=== PATIENT | female | born 1935 | race Caucasian/White ===

== ENCOUNTER 2017-02-01 15:01 | Inpatient (IN) | payer MEDICARE, OTHER ==
[~2017-02-01] VITALS: Ht 154.9 cm; Wt 34.5 kg
--- NOTE | 2017-02-01 18:10 | NUR ---
81 YR OLD FEMALE PATIENT ADMITTED TO CCU UNDER DR. BLOCK FROM ER VIA STRETCHER WITH DX OF ANEMIA, CHF. UPON ADMIT TO CCU PT IS ALERT AND ORIENTED X3. FAMILY MEMBERS WITH PATIENT. R LEG IS WITH EDEMA +3 ABLE TO HEAR PP WITH DOPLER. C/O PAIN IN LEFT KNEE. LEFT FOOT IS RED AROUND A BLACK AREA ON TOP OF FOOT. NOT ABLE TO HEAR PULSE IN THIS FOOT. PATIENT IS ASKINGG FOR FOOD AND COFFEE. ADMISSION PROCESS STARTED. HR 120. IN AFIB. HAS NO KNOWN HX OF THIS.
--- NOTE | 2017-02-01 19:00 | NUR ---
SITTING UP IN BED TO EAT. SCD'S APPLIED, MG HUNG, LASIX 20 MG IV GIVEN. TRINIDAD CATH PLACE AT 1830 WITH RETURN OF RESHMA URINE.
--- NOTE | 2017-02-01 19:11 | NUR ---
REPORT TO NEXT SHIFT WHO WILL FINISH ADMISSION ASSESSMENT.
--- NOTE | 2017-02-01 19:37 | EKG ---
[facility] [address] [place] [address] Signed Sinus tachycardia with frequent premature supraventricular complexes Septal infarct , age undetermined Abnormal ECG No previous ECGs available Confirmed by XAVIER BLOCK MD ([id number]) on 02/01/2017 7:37:18 PM Electronically Signed By: XAVIER BLOCK MD 02/01/171936 PATIENT NAME: URIEL CHAVIS Electrocardiogram DATE OF : 31 PHYSICIAN: XAVIER BLOCK MD REPORT #: [id number] REPORT IS CONFIDENTIAL AND NOT TO BE RELEASED WITHOUT AUTHORIZATION
--- NOTE | 2017-02-01 19:40 | NUR ---
REPORT REC'D FROM RODNEY ROSA. PT RESTING IN BED UPON INITIAL ASSESSMENT. PATIENT'S FAMILY MEMBERS IN ROOM AND ATTENTIVE. PT HAS TRINIDAD CATHETER THAT IS DRAINING VERY DILUTE URINE. PT REC'D LASIX EARLIER FOR DAY SHIFT. PT'S HEART RHYTHM NOTED TO BE IN A SINUS RHYTHM WITH MANY PACs NOTED. PT TO HAVE 2 UNITS OF PRBCs TONIGHT. PT WILL NEED ANOTHER IV SITE WELL. PT ATE MOST OF HER DINNER, BUT STILL C/O HER ABDOMEN FEELING "FULL." CONTINUE TO MONITOR.
--- NOTE | 2017-02-01 21:17 | NUR ---
PATIENT STARTED ON HER FIRST UNIT OF PRBCs AT 2039. PT'S NIECE LAURENCE IN ROOM AND STAYING WITH PATIENT TONIGHT. NEW IV STARTED IN LEFT FOREARM. TRINIDAD DRAINED FOR 1000 ML DILUTE URINE. CONTINUE TO MONITOR. PT DENIES THE NEED FOR NICOTINE PATCH, BUT HAS MENTIONED SEVERAL TIMES, "BOY I'D LIKE A DRAG OFF MY CIGARETTE RIGHT NOW."
--- NOTE | 2017-02-01 23:27 | NUR ---
PATIENT HAS BEEN SLEEPING. PT'S HAYLEE REMAINS AT BEDSIDE, ASLEEP ON COUCH. 1ST UNIT OF BLOOD JUST FINISHING AT THIS TIME. PT TO BE STARTED ON NEXT UNIT SOON. HEART RATE REMAINS IN A SINUS RHYTHM 80-90s, BUT SOMETIMES MULTIFOCAL ATRIAL TACHYCARDIA IS EVIDENT, WITH RATES OF 100-130s NONSUSTAINED. TRINIDAD DRAINING CLEAR YELLOW URINE IN GOOD AMOUNTS.
--- NOTE | 2017-02-02 05:53 | NUR ---
PATIENT CONTINUES TO SLEEP. PT TOLERATED THE 2 UNITS OF PRBCs WITHOUT ANY ISSUES. TRINIDAD CONTINUES TO DRAIN CLEAR YELLOW URINE. HEART RHYTHM REMAINS IN THE MAT, RATES OF 80-100s. LAST BP 176/88. PT'S HAYLEE REMAINS AT BEDSIDE SLEEPING ON COUCH.
--- NOTE | 2017-02-02 07:05 | NUR ---
U/S ON THEIR WAY TO PERFORM ABDOMINAL U/S ON PT'S LEFT LEG AND ALSO ON HER ABDOMEN TO EVALUATE FOR AN ABDOMINAL ANEURYSM.
--- NOTE | 2017-02-02 08:00 | NUR ---
SITTING UP IN BED. ASSESSMENT DONE. DENIES PAIN. FAMILY MEMBER IN ROOM. BOTH ARE UNDERSTANDING OF PLAN OF CARE FOR DAY.
--- NOTE | 2017-02-02 09:30 | NUR ---
TOOK FEW BITES OF BREAKFAST. DENIES NAUSEA. ECHO BEING DONE AT BEDSIDE.
--- NOTE | 2017-02-02 09:39 | NUR ---
CARDIZEM 5 MG IV GIVEN FOLLOWED BY CARDIZEM GTT AT 5 MG HR. HR 140. ECHO BEING DONE AT BEDSIDE. PATIENT DENIES PROBLEMS. DENIES DIZZINESS OR SHORTNESS OF BREATH.
--- NOTE | 2017-02-02 09:50 | NUR ---
ECHO COMPLETE. HR-115. NO CHANGES IN CARDIZEM GTT RATE, REMAINS AT 5 MG/HR.
--- NOTE | 2017-02-02 10:49 | NUR ---
PATIENT RESTFUL. NO CHANGES.
--- NOTE | 2017-02-02 11:00 | NUR ---
DR. BLOCK HERE TO SEE PATIENT.
--- NOTE | 2017-02-02 11:02 | NUR ---
HR-120-136. BP-131/76. DR. BLOCK HERE TO SEE PATIENT. ORDERS RECIEVED TO REPEAT CARIZEM 5 MG IV. THIS DONE.
--- NOTE | 2017-02-02 13:30 | NUR ---
ASLEEP. NO DISTRESS NOTED. CARDIZEM GTT REMAINS AT 7.5 MG/HR. WILL GIVE CARDIZEM PO ORDERED.
--- NOTE | 2017-02-02 14:27 | NUR ---
HAS BEEN RESTING. CARDIZEM 60 MG PO GIVEN. HR-<90.
--- NOTE | 2017-02-02 16:03 | NUR ---
CHECKED IN WITH PT AND SHE IS JUST SITTING IN BED PEACEFUL, I ORDERED HER DINNER AND SHE DIDNT WANT ANYTHING ELSE FOR NOW.
--- NOTE | 2017-02-02 16:30 | NUR ---
CARDIZEM GTT OFF. PATIENT IS W/O C/O.
--- NOTE | 2017-02-02 18:42 | NUR ---
RESTFUL. DENIES PROBLEMS.
--- NOTE | 2017-02-02 19:56 | NUR ---
PATIENT RESTING UPON INITIAL ASSESSMENT WITH HER NEICES AT BEDSIDE. PT IN GOOD SPIRITS AND STATES SHE IS FEELING BETTER TONIGHT OVERALL. PT STILL HAS TRINIDAD CATHETER DRAINING YELLOW URINE. PT HAS BEEN OF DILT GTT SINCE 1630. PT DENIES PAIN AT THIS TIME. SCDs ON. ASSESSMENT COMPLETE. CONTINUE TO MONITOR.
--- NOTE | 2017-02-02 21:48 | NUR ---
PATIENT SLEEPING AND APPEARS IN NAD. HEART RATE IN THE 70-80s, SINUS RHYTHM WITH LESS ECTOPY NOTED TONIGHT. SCDs ON. PT'S NEICE SARITA AT BEDSIDE. CONTINUE TO MONITOR.
--- NOTE | 2017-02-03 01:06 | NUR ---
PATIENT GIVEN 650 MG TYLENOL FOR 5/10 KNEE PAIN IN HER LEFT KNEE. PT STATES THIS HAS BEEN BUGGING HER MOST OF THE NIGHT AND SHE ALSO NOTES THAT HER KNEE IS COOLER THAN HER RIGHT LEG. PT ALSO NOTES THE PAIN EXTENDS DOWN HER STEVENS, WHICH PREVIOUSLY TONIGHT AND YESTERDAY, PT WAS UNABLE TO HAVE ANY SENSATION BELOW HER KNEE ONTHE LEFT. OTHER THAN THIS DISCOMFORT, PT DENIES PAIN OR SHORTNESS OF BREATH. PT REMAINS IN A SINUS RHYTHM WITH HR CURRENTLY 80-90s. TRINIDAD DRAINING YELLOW URINE. CONTINUE TO MONITOR.
--- NOTE | 2017-02-03 05:25 | NUR ---
PATIENT PLACED ON 2 L NC AT THIS TIME DUE TO SP02 DROPPING DOWN TO 86%. PT ASK3D TO TAKE SOME DEEP BREATHS WHICH HELPS FOR A SHORT WHILE, BUT SP02 CONTINUES TO DROP DOWN. PT NOW SIPPING ON A CUP OF COFFEE WITH HER NEICE AT BEDSIDE.
--- NOTE | 2017-02-03 06:23 | NUR ---
DR. BLOCK UPDATED ON PT'S OVERALL STATUS AND HER INCREASED PAIN IN HER LEG. ORDER REC'D TO D/C VIVI.
--- NOTE | 2017-02-03 06:31 | NUR ---
PATIENT STILL VERY PAINFUL IN HER LEFT LEG, AND ALMOST IN TEARS. DR. BLOCK UPDATED AGAIN AND ORDER REC'D FOR MORPHINE 2 MG IV Q2 HRS FOR PAIN. CONTINUE TO MONITOR.
--- NOTE | 2017-02-03 08:42 | NUR ---
PT AWAKE THIS A.M. AND ASSESSMENT AND VITAL SIGNS COMPLETED. PT C/O OF LEFT FOOT PAIN "02/10" - MEDICATED WITH MORPHINE 1MG IV. PT NOW RESTING WITH HOB ELEVATED. HR 85, SATS 93 ON 1L PER NC.
--- NOTE | 2017-02-03 10:05 | NUR ---
PT C/O OF LEFT FOOT PAIN "02/10". MEDICATED WITH 1MG MORPHINE IV. PT VISITING WITH FAMILY MEMBER IN ROOM.
--- NOTE | 2017-02-03 10:47 | NUR ---
DR. BLOCK IN TO ASSESS PT AND TALK WITH PT AND FAMILY MEMBERS.
--- NOTE | 2017-02-03 11:44 | NUR ---
ORDERS RECEIVED FROM DR. BLOCK. LASIX 20MG GIVEN IV & LIDOCAINE PATCH APPLIED TO LEFT FOOT. ASSESSMENT COMPLETED. PT RESTING AFTER BEING MEDICATED WITH MORPHINE 1MG IV.
--- NOTE | 2017-02-03 13:12 | NUR ---
PT AWAKE AND HUNGRY. STATES PAIN IS GONE NOW. PT RESTING IN BED WITH HOB ELEVATED, SATS 93 ON RA. FAMILY MEMBER IN ROOM.
--- NOTE | 2017-02-03 14:11 | NUR ---
VIVI LEVY DC'D, PT JENS WELL. I/O'S COMPLETED. PT DENIES PAIN AT THIS TIME. PT RESTING IN BED WITH HOB ELEVATED.
--- NOTE | 2017-02-03 15:38 | NUR ---
PT C/O OF LEFT KNEE/FOOT PAIN "02/10". MEDICATED WITH MORPHINE 1MG IV AND NORCO 1 TABLET. FAMILY IN ROOM.
--- NOTE | 2017-02-03 16:32 | NUR ---
PATIENT TAKES NO MEDICATIONS
--- NOTE | 2017-02-03 16:50 | NUR ---
REPORT GIVEN TO KEAGAN STEVENS. PT TRANSFERRED TO ROOM 120 VIA KARRIE CHAIR WITH RN. FAMILY WITH PT. PT DENIES C/O OF LEFT KNEE/FOOT PAIN AT THIS TIME.
--- NOTE | 2017-02-03 16:58 | NUR ---
PATIENT FROM ROOM 129 TO ROOM 120 VIA CHAIR. BRANNON STEVENS GAVE REPORT TO KEAGAN STEVENS. PATIENT DENIES PAIN AT THIS TIME. PLAN FOR PATIENT TO HAVE P.O. PAIN MEDICATIONS EVERY 4 HOURS. LEFT FOOT IS RED, TOP IS COVERED IN LIDODERM PATCH. PATIENT AMBULATED, UNSTEADILY TO BATHROOM 1-2 ASSIST TO HAVE UNMEASURED VOID. FAMILY IS IN ROOM. PATIENT IS UP TO CHAIR UNTIL DINNER.
--- NOTE | 2017-02-03 17:09 | NUR ---
PATIENT SITTING UP IN CHAIR WITH FAMILY IN ROOM. ORDERING DINNER. CALL BUTTON IN REACH. FRESH WATER GIVEN. NO OTHER NEEDS AT THIS TIME.
--- NOTE | 2017-02-03 17:25 | NUR ---
PT CALLED FOR PAIN MEDICATION. WHEN THIS RN BROUGHT PRN ANALGESIC TO PT PT REPORTED THAT HER LEFT FOOT AND TOES HAD BEEN HURTING, BUT THAT THE PAIN HAD RESOLVED. DENIED NEED FOR PAIN MEDICATION AT THIS TIME.
[2017-02-03] MEDS ORDERED: DILTIAZEM 24HR240 M3 PO (18:45)
[2017-02-03] MEDS ORDERED: HYDROCODON-ACE1 EA10 PO (18:45)
--- NOTE | 2017-02-03 18:51 | NUR ---
PT SITTING UP IN RECLINER. ATE APROXIMATELY 10% OF DINNER. GAVE PT CHOCOLATE ENSURE, WHICH SHE IS DRINKING NOW. PT DENIES PAIN AT THIS TIME. ALERT, ORIENTED TO EVENTS, SURROUNDINGS, PLACE, SELF, DISORIENTED TO DATE. PT REPORTS THAT SHE FEELS "CONFUSED" AND THAT SHE HAS FELT CONFUSED FOR SEVERAL DAYS.
--- NOTE | 2017-02-03 19:10 | NUR ---
BEDSIDE REPORT RECEIVED FROM OFFGOING NURSE. PT FAMILY AT BEDSIDE VISITING. PT SITTING UP IN BED AWAKE. DENIES PAIN OR NAUSEA. DENIES NEEDS AT THIS TIME. CALL LIGHT WITHIN REACH.
--- NOTE | 2017-02-03 20:48 | NUR ---
PATIENT SLEEPING, DID NOT DISTURB HER. UPDATED WHITEBOARD.
--- NOTE | 2017-02-03 22:09 | NUR ---
PT ASSESSMENT COMPLETE. PT ASSISTED TO THE BEDSIDE COMMODE WITH 2 PA, TOLERATED WELL. PT DENIES PAIN. SLIGHT EDEMA, 1+ NOTED TO RLE. LIDOCAINE PATCH TO TOP OF L FOOT REMOVED. NO PEDAL PULSE PALPABLE TO LLE. BLACKENED ULCERS PRESENT TO VARIOUS AREAS OF L FOOT. PT DENIES OTHER NEEDS AT THIS TIME. CALL LIGHT WITHIN REACH.
--- NOTE | 2017-02-04 00:05 | NUR ---
NURSE IN ROOM, PATIENT WANTS PAIN MEDICINE
--- NOTE | 2017-02-04 00:16 | NUR ---
PT UTILIZES CALL LIGHT. STATES THAT SHE IS HAVING PAIN TO L KNEE, RATES 10/10. PT DENIES THIS BEING THE WORST PAIN SHE HAS EVER HAD, STATES "YOU KNOW, IT HURTS LIKE IT DID THE OTHER NIGHT." ICE PACK APPLIED TO L KNEE. PRN NORCO ADMINISTERED. PT DENIES OTHER NEEDS AT THIS TIME. CALL LIGHT IN PT'S LAP.
--- NOTE | 2017-02-04 01:51 | NUR ---
PT RESTING IN BED WITH EYES CLOSED. RESPIRATIONS EVEN AND UNLABORED. PT SNORING AUDIBLY. CALL LIGHT WITHIN REACH.
--- NOTE | 2017-02-04 01:55 | NUR ---
PATIENT IN BED SLEEPING
--- NOTE | 2017-02-04 02:55 | NUR ---
PT UP TO USE BEDSIDE COMMODE WITH 1 PA. TOLERATED WELL. PT USING CALL LIGHT APPROPRIATELY, DENIES PAIN AT THIS TIME. CALL LIGHT WITHIN REACH. DENIES OTHER NEEDS.
--- NOTE | 2017-02-04 04:54 | NUR ---
PT RESTING WELL THROUGHOUT THE NIGHT. NORCO X 1 FOR PAIN 10/10 TO L KNEE. TELE # 7, HR IRREGULAR, 90'S. BLACK SORES TO L FOOT UNCHANGED THROUGHOUT SHIFT. PEDAL PULSE NOT PALPABLE TO L FOOT. EDEMA CONTINUES TO R FOOT. PT EXTREMELY CACHECTIC. ENCOURAGE MEALS AND ENSURE. IV X 2 SL. 1 PA TO BSC.
--- NOTE | 2017-02-04 05:32 | NUR ---
PT RATING PAIN 10/10 TO L KNEE AND L FOOT. PRAKASH MADERA ADMINSTERED. PT SITTING UP IN BED DRINKING COFFEE, TALKING ABOUT HER DOGS. PT DENIES OTHER NEEDS AT THIS TIME, CALL LIGHT WITHIN REACH.
--- NOTE | 2017-02-04 07:28 | NUR ---
BEDSIDE HANDOFF REPORT RECEIVED FROM DATABASE ADMIN RN. PT RESTIN IN BED. PT DENIES NEEDS AT THIS TIME.
--- NOTE | 2017-02-04 08:00 | NUR ---
ASSISTED WITH BED BATH. ONE PERSON ASSIT TO BED SIDE COMMODE THEN TO CHAIR WITH LEGS ELEVATED. SKIN CARE AND MILTON CARE DONE. WARM BLANKETS GIVEN. ENSURE GIVEN. NO ORAL CARE DUE TO PATIENTS ELEVATED HEART RATE. WILL ASSIST WITH LATER.
--- NOTE | 2017-02-04 08:49 | NUR ---
PT HR 130-140'S. MD AT BEDSIDE. VERBAL ORDER TO GIVE 10 MG IV CARDIZEM. BLLOD PRESSURE 125/85 (90), HR 145.
--- NOTE | 2017-02-04 10:16 | NUR ---
PATIENT SITTING UP IN CHAIR WITH FEET ELEVATED SIPPING ON COFFEE. CALL BUTTON IN REACH. NO OTHER NEEDS AT THIS TIME. FRESH WATER GIVEN.
--- NOTE | 2017-02-04 11:20 | NUR ---
PT WORKING WITH PHYSICAL THERAPIST.
--- NOTE | 2017-02-04 11:30 | NUR ---
PT IN WITH PATIENT.
--- NOTE | 2017-02-04 12:50 | NUR ---
PT ASSISTED TO BATHROOM WITH 1PA, BACK TO CHAIR. PT DENIES NEEDS AT THIS TIME. RATES PAIN 0/10.
--- NOTE | 2017-02-04 13:40 | NUR ---
KELTON SITTING UP IN CHAIR. LUNCH TRAY NEXT TO HER. ENSURE GIVEN. CALL BUTTON IN REACH. NO OTHER NEEDS AT THIS TIME.
--- NOTE | 2017-02-04 14:15 | NUR ---
ORAL CARE DONE. PATIENT SITTING UP IN CHAIR WITH FEET UP. CALL BUTTON IN REACH. PATIENT FINISHED ENSURE. / BANANA EATEN. FRESH WATER GIVEN. NO OTHER NEEDS AT THIS TIME.
--- NOTE | 2017-02-04 15:51 | NUR ---
PT RESTING IN BED. PT DENIES NEEDS AT THIS TIME.
--- NOTE | 2017-02-04 18:10 | NUR ---
ASSISTED PATIENT TO BATHROOM ONE PERSON ASSIST WITH FWW. BACK TO BED. CALL BUTTON IN REACH NO OTHER NEEDS AT THIS TIME.
--- NOTE | 2017-02-04 18:10 | NUR ---
PATIENT ATE FULL BOWEL OF SOUP.
--- NOTE | 2017-02-04 18:26 | NUR ---
PT TACHYCARDIC THIS AM, RECEIVED IV CARDIZEM AND PO CARDIZEM X2. PT ON ROOM AIR, LUNG SOUNDS CLEAR. PAIN WELL CONTROLLED WITH LIDOCAINE PATCH, TYLENOL AND NORCO X1. PT SAT IN CHAIR FOR MAJORITY OF SHIFT, 1PA TO BATHROOM. TOLERATING REGULAR DIET, POOR NUTRITION, ENCOURAGE ENSURE AFTER MEALS. VOIDING QS.
--- NOTE | 2017-02-04 19:15 | NUR ---
RECEIVED REPORT FROM RN. PATIENT IS RESTING COMFORTABLY IN BED AND DENIES NEEDS AT THIS TIME. CALL LIGHT WITHIN REACH.
--- NOTE | 2017-02-04 19:53 | NUR ---
PATIENT IN BED SLEEPING. WHITEBOARD UPDATED, ROOM TIDIED.
--- NOTE | 2017-02-04 23:24 | NUR ---
IN TO CHECK ON PT, PT SITTING UP IN BED. PT C/O L KNEE PAIN, NORCO GIVEN. NO FURTHER NEEDS AT TIS TIME. CALL LIGHT IN REACH.
--- NOTE | 2017-02-05 | NUR ---
PATIENT IN BED SLEEPING
--- NOTE | 2017-02-05 01:40 | NUR ---
PT CALLED, IN ROOM TO ASSIST PT TO BSC. PT TOLERATED WELL. PT C/O L KNEE PAIN. SCD OFF PER PT REQUEST. PT TOLERATED AMBULATION WELL. ASSISTED BACK TO BED. NO FURTHER NEEDS AT THIS TIME. CALL LIGHT ON REACH.
--- NOTE | 2017-02-05 02:11 | NUR ---
NURSE IN ROOM
--- NOTE | 2017-02-05 02:30 | NUR ---
PATIENT IS RESTING COMFORTABLY IN BED. BREATHING IS EVEN AND UNLABORED ON 2L OF O2 VIA NC. ASSESSMENT DONE, PATIENT DENIES NEEDS AT THIS TIME. CALL LIGHT WITHIN REACH.
--- NOTE | 2017-02-05 03:52 | NUR ---
nurse in room
--- NOTE | 2017-02-05 06:18 | NUR ---
PATIENT'S NIGHT WAS UNEVENTFUL. SHE HAS BEEN RESTING COMFORTABLY IN BED THROUGHOUT SHIFT. PAIN HAS BEEN WELL CONTROLLED WITH PRN NORCO. SHE IS A 1PA/FWW. NO ACUTE CHANGES FROM BEGINNING OF SHIFT ASSESSMENT. INTENTIONAL ROUNDING DONE WITH ALL PATIENT'S NEEDS MET.
--- NOTE | 2017-02-05 06:31 | NUR ---
UPDATED DR. BLOCK REGARDING PATIENT DESATING TO 70s. PUT PATIENT ON 4L O2 VIA NC, PATIENT IS SITTING COMFORTABLY IN BED NOW. RT ASSESSED PATIENT WELL. NO NEW ORDERS AT THIS TIME.
--- NOTE | 2017-02-05 07:19 | NUR ---
BEDSIDE HANDOFF REPORT RECEIVED FROM CAN STACKER RN. PT RESTING IN BED, LEFT UNDISTURBED.
--- NOTE | 2017-02-05 08:59 | NUR ---
PT RESTING IN BED. PT CONFUSED ON TIME OF DAY, STATES "I FEEL LIKE IT IS NIGHT TIME", REORIENTED SELF. PT LUNG SOUNDS WITH RHONCHI AND WHEEZE, ENCOURAGED I/S, O2 SATS 96% ON 4L, WEANED TO 3L NC. PT DENIES PAIN, LIDOCAINE PATCH APPLIED TO LEFT FOOT. IV X2, SALINE LOCKED, FLUSHED, PATENT. PT BOWEL TONES AVCTIVE, POOR INTAKE, ENCOURAGED. PT DENIES NEEDS AT THIS TIME.
--- NOTE | 2017-02-05 09:55 | NUR ---
MD TO BEDSIDE TO BEDSIDE TO EVAULATE PT. PLAN TO TRANSITION TO SWING BED TODAY. PT CONTINUES TO BE SLIGHTLY DISORIENTED TO TIME, WILL MOVE PT TO A ROOM WITH WINDOW TO HELP WITH ORIENTATION.
[2017-02-05] MEDS ORDERED: CARDIZEM LA360 MG PO (10:51)
== END 2017-02-05 10:10 | disposition swing bed (61) | DRG 377 ==
LOC: ED 15:01 → CCU 17:38 → MS 02-03 16:49
PROVIDERS: ADMIT Internal Medicine
PROC: 30233N1 Transfusion of Nonautologous Red Blood Cells into Peripheral Vein, Percutaneous Approach (ICD-10-PCS; principal; 2017-02-01)
DX: K92.2 Gastrointestinal hemorrhage, unspecified (principal); I50.31 Acute diastolic (congestive) heart failure; E46 Unspecified protein-calorie malnutrition; Z68.1 Body mass index [BMI] 19.9 or less, adult; I48.0 Paroxysmal atrial fibrillation; I73.9 Peripheral vascular disease, unspecified; I71.4 Abdominal aortic aneurysm, without rupture; D50.9 Iron deficiency anemia, unspecified; I99.8 Other disorder of circulatory system; F17.210 Nicotine dependence, cigarettes, uncomplicated; S90.922A Unspecified superficial injury of left foot, initial encounter; Z66 Do not resuscitate
CPT/HCPCS: 36415; 36430; 51702; 71010; 80053; 80069; 81001; 82607; 82728; 82746; 83540; 83735; 83880; 84100; 84466; 84484; 85025; 85045; 86850; 86900; 86901; 86920; 93005; 93010; 93306; 93926; 94668; 97116; 97162; J2270; J3475; P9016

== ENCOUNTER 2017-02-05 10:10 | Inpatient (IN) | payer MEDICARE, OTHER ==
[~2017-02-05] VITALS: Ht 154.9 cm; Wt 33.2 kg
[~2017-02-05 10:10] MED LIST: DILTIAZEM 24HR240 M3 PO; HYDROCODON-ACE1 EA10 PO
--- NOTE | 2017-02-05 10:10 | NUR ---
PT ADMITTED SWING BED. PT RESTING IN BED, FAMILY AT BEDSIDE.
[2017-02-05] MEDS ORDERED: CARDIZEM LA360 MG PO (10:51)
--- NOTE | 2017-02-05 13:00 | NUR ---
PT RESTING IN BED. PT DENIES NEEDS AT THIS TIME.
--- NOTE | 2017-02-05 14:01 | NUR ---
PT WORKING WITH OCCUPATIONAL THERAPIST.
--- NOTE | 2017-02-05 15:44 | NUR ---
PT RESTING IN BED.
--- NOTE | 2017-02-05 18:13 | NUR ---
PT TRANSFERED TO ROOM 114, WALKED IN LIPSCOMB FOPR TRANSFER, TOLERATED WELL.
--- NOTE | 2017-02-05 18:22 | NUR ---
PT TRANSFERED TO SWING BED. PT DISORIENTED TO TIME, MOVED TO ROOM 114, PROMOTE SLEEP/WAKE HYGEINE. PT ON 1.5L NC, LUNG SOUNDS WITH RHONCHI AND WHEEZE. PT RECEIVED LASIX X1, GOOD URINE OUTPUT. PT CONTINUES TO HAVE POOR PO INTAKE OF MEALS, SUPPLEMENT WITH ENSURE. LIDOCAINE PATCH TO LEFT FOOT. PT HAD BM TODAY.
--- NOTE | 2017-02-05 20:00 | NUR ---
pATIENT PLEASENTLY LYING IN BED WATCHING TV.
--- NOTE | 2017-02-05 22:00 | NUR ---
PATIENT LYING QUETLY IN BED WATCHING TV. LIDOCAINE PATCH REMOVED FROM LEFT FOOT AT 2100.
--- NOTE | 2017-02-06 00:16 | NUR ---
PATIENT RESTING QUIETLY IN BED EYES OPEN RESTIG QUIETLY WITH NO COMPLAINTS.
--- NOTE | 2017-02-06 01:40 | NUR ---
PT CALLED, IN TO CHECK ON PT. PT AWAKE ASKS "WHEN ARE WE GOING TO HAVE BREAKFAST." PT REORIENTED TO TIME. PT GIVEN KEI ARAUJO. PT ASSISTED WITH TV. NO FURTHER NEEDS AT THIS TIME. CALL LIGHT IN REACH.
--- NOTE | 2017-02-06 02:10 | NUR ---
PATIENT RESTING ON HER LEFT SIDE, EYES CLOSED, RESPIRATIONS UNLABORED AND EVEN.
--- NOTE | 2017-02-06 04:15 | NUR ---
pATIENT SITTING QUIETLY IN BE, DRINKING A CUP OF COFFEE AND WATCHING TV.
--- NOTE | 2017-02-06 05:33 | NUR ---
PATIENT HAS BEEN UP WATCHING TV FOR MOST OF THE SHIFT ONLY SLEEPING MINIMALLY, SHE IS SWING BED STATUS. VS HAVE BEEN GOOD. IV FLUSHED WELL AND IS PATENT ALTHOUGH MAY STAY OUT IF FALLS OUT PER MD. VERY PLEASENT AND STAND BY ASSIST TO THE BATHROOM.
--- NOTE | 2017-02-06 06:33 | NUR ---
PATIENT RESTING QUIETLY IN BED WATCHING TV.
--- NOTE | 2017-02-06 07:29 | NUR ---
RECIEVED REPORT FROM RODNEY AVENDANO. PT HAS [facility] STUDENT ASSIGNED.
--- NOTE | 2017-02-06 10:52 | NUR ---
DISCUSSED PAIN MANAGEMENT WITH PT. SHE DECLINED PAIN MEDS AT THIS TIME. PT DID AGREE TO PAIN MEDICATION PRIOR TO NEXT SCHEDULED PHYSICAL THEAPY SESSION.
--- NOTE | 2017-02-06 14:26 | NUR ---
PATIENT C/O 07/11 RIGHT KNEE PAIN AFTER PHYSICAL THERAPY, PATIENT GIVEN 1 NORCO PO FOR THIS PAIN
--- NOTE | 2017-02-06 17:40 | NUR ---
PT UP TO CHAIR, AMBULATED TO TOILET. PT TOLERATING MEALS WELL, ENJOYS ENSURE SHAKES WITH AND BETWEEN MEALS. PT REPORTS PAIN IS WELL CONTROLED WITH LIDOCAINE PATCH. PRN NORCO GIVEN PRIOR TO PHYSICAL THERAPY. WORKED WITH PHYSICAL THEARPY X2.
--- NOTE | 2017-02-06 19:49 | NUR ---
RECIEVED REPORT FROM DAY SHIFT NURSE. PT RESTING IN BED. DENIES NEEDS AT THIS TIME. NC IN PLACE. CALL GALLAGHER IN REACH.
--- NOTE | 2017-02-06 21:23 | NUR ---
PT RESTING IN BED. REMOVED LIDO PATCH FROM L FOOT. BLACK ESCHAR NOTED ON TOP OF L FOOT AND L GREAT TOE. APPLIED NON-ADHESIVE DRESSING WRAPPED WITH KERLEX ON L FOOT FOR SMALL AMOUNT OF YELLOW DRAINAGE NOTED ON LIDO PATCH WHEN REMOVED. PT DENIES PAIN AT THIS TIME. TOILETING OFFERED. CALL GALLAGHER IN REACH.
--- NOTE | 2017-02-06 22:38 | NUR ---
ASSISTED PT TO BATHROOM. PT VOIDED. BACK TO BED. PT DENIES FURTHER NEEDS. CALL GALLAGHER IN REACH.
--- NOTE | 2017-02-07 00:56 | NUR ---
ASSISTED PT TO BATHROOM. PT VOIDED. REMOVED SALINE LOCK IN L WRIST. PT DENIES FURTHER NEEDS. CALL GALLAGHER IN REACH.
--- NOTE | 2017-02-07 02:54 | NUR ---
ASSISTED PT TO BATHROOM. PT VOIDED, HAD LARGE FORMED BM. BACK TO BED. CALL GALLAGHER IN REACH.
--- NOTE | 2017-02-07 04:31 | NUR ---
PT HAD AN UNEVENTFUL NIGHT. SLEPT MOST OF THE NIGHT. UP TO BATHROOM A FEW TIMES WITH SBA AND FWW. PT STATES SHE FEELS MORE STEADY ON HER FEET. REMOVED IV IN L WRIST. NEED ORDER FROM . PT STILL ON 1.5L O2 VIA NC.
--- NOTE | 2017-02-07 06:01 | NUR ---
PT SLEEPING. CALL GALLAGHER IN REACH.
--- NOTE | 2017-02-07 07:17 | NUR ---
RECIEVED BEDSIDE REPORT FROM RODNEY LIGHT. PT REPORTS 8/10 PAIN IN HER BILAT LEGS. PRN PAIN MEDICATIONS GIVEN, WITH EDUCATION ON PAIN MANAGEMENT SO SHE COULD WORK WITH PHYSICAL THERAPY.
--- NOTE | 2017-02-07 09:48 | NUR ---
PT AWAKE IN BED. STATES HER LEGS FEEL BETTER. PT BELIEVES HER KNEES ARE MUCH BETTER. BILAT KNEES ARE NOT SWOLLEN, NO REDNESS, NO PAIN. PT STATES SHE WILL GET IN THE CHAIR AFTER WALKING WITH PHYSICAL THERAPY.
--- NOTE | 2017-02-07 13:54 | NUR ---
PT AWAKE IN BED WITH FAMILY AT BEDSIDE.
--- NOTE | 2017-02-07 16:23 | NUR ---
PATIENT SITTING UP IN BED, VISITING WITH FAMILY. REQUESTED AN ENSURE, BROUGHT HER A CHOCOLATE ONE.
--- NOTE | 2017-02-07 18:26 | NUR ---
PT UP WITH PHYSICAL THERAPY. TOLERATED WELL. PT REPORTS NO PAIN IN LEGS, MILD PAIN IN FOOT. PT TOLERATED REG DIET WELL, WITH ENSURE SHAKES. ENJOYED FAMILY VISITS, TV, AND RESTING.
--- NOTE | 2017-02-07 19:00 | NUR ---
RECIEVED REPORT FROM DAY SHIFT NURSE. PT RESTING IN BED. DENIES NEEDS. CALL GALLAGHER IN REACH.
--- NOTE | 2017-02-07 21:02 | NUR ---
LIDOCAINE PATCH REMOVED ORDERED. MEDICATED FOR PAIN, SEE EMAR. PT C/O STOMACH PAIN, WILL NOTIFY RN ASSUMING CARE. OXYGEN REPLACED, 4 LITERS BY NC SATS IN 80'S ON ROOM AIR. PT ENC TO COUGH AND DEEP BREATH.
--- NOTE | 2017-02-07 21:32 | NUR ---
PT RESTING IN BED. TOILETING OFFERED. PT ON 4L O2-STATES SHE TOOK IT OFF EARLIER. PT WAS PLACED ON CONT. PULSE OX-O2 IN LOW 90S. PT ENCOURAGED TO USE IS-WAS ABLE TO REACH 600ML. MOIST COUGH NOTED. PT STATES SHE IS UNABLE TO BRING UP SECRETIONS. CRACKLES HEARD IN BASES. CALL GALLAGHER IN REACH.
--- NOTE | 2017-02-08 01:30 | NUR ---
ASSISTED PT TO BATHROOM. PT VOIDED. MOIST COUGH STILL NOTED. PT ABLE TO COUGH UP THICK YELLOW SPUTUM. IS ENCOURAGED. PT ASKING FOR CUP OF COFFEE. CALL GALLAGHER IN REACH.
--- NOTE | 2017-02-08 03:44 | NUR ---
PT RESTING IN BED. STATES HER L KNEE IS 10/10 PAIN. NORCO ADMINISTERED. TOILETING OFFERED. COFFEE DELIVERED PER PT'S REQUEST. CALL GALLAGHER IN REACH.
--- NOTE | 2017-02-08 03:49 | NUR ---
PT ON 2L AT 88%...INCREASED O2 TO 3L/MIN. PT'S SAT 90-92% ON 3L. PT ON CONT. PULSE OX...HR HAS BEEN TACHY FOR MOST OF THE NIGHT. MOIST COUGH STILL PRESENT.
--- NOTE | 2017-02-08 04:55 | NUR ---
PT RESTING IN BED. TOILETING OFFERED. STATES HER KNEE STILL HURTS. OFFERED HER TYLENOL. PT REFUSED AND SAYS SHE WOULD LIKE TO HAVE BREAKFAST FIRST. OFFERED PEANUT BUTTER CRACKERS, SHE REFUSED. COFFEE DELIVERED PER REQUEST. PT'S O2 NOW AT 87% ON 3L/MIN. INCREASED TO 4L/MIN, O2 AT 91%. ENCOURAGED COUGH/DEEP BREATHING. CALL GALLAGHER IN REACH.
--- NOTE | 2017-02-08 04:59 | NUR ---
PT DID NOT HAVE A GOOD NIGHT. SHE WAS UP FOR MOST OF IT, C/O ABD AT THE START OF SHIFT, NORCO GIVEN. PT TOOK O2 OFF, WAS FOUND WITH SATS IN LOW 80S. APPLIED 4L AND PLACED ON CONT. PULSE OX. ATTEMPTED TO TITRATE BACK TO 2L, PT'S O2 SATS FOUND TO BE 87-88%. BUMPED TO 3L. SATS REMAINED UNCHANGED. INCREASED TO 4L, O2 NOW AT 90-92%. MOIST, PRODUCTIVE COUGH NOTED ALL NIGHT. PT C/O SEVERE PAIN IN L KNEE. NORCO GIVEN. PT STATES SHE DOES NOT WANT TO WALK TODAY DUE TO THE PAIN.
--- NOTE | 2017-02-08 07:18 | NUR ---
RECIEVED REPORT FROM RODNEY LIGHT. PT ALERT AND AWAKE.
--- NOTE | 2017-02-08 08:24 | NUR ---
PT AWAKE IN BED. PICKED UP ROOM TOOK HER SOME FRESH ICE WATER AND COFFEE.
--- NOTE | 2017-02-08 17:35 | NUR ---
PT REPORTS COUGH IS MUCH BETTER. STATED SHE "COUGHED A BUCKET". PT REPORTED PAIN IN KNEE, REFUSED TO PARTICIPATE IN PHYSICAL THERAPY. PAIN PARTIALLY RESOLVED BY PRN PAIN MEDICATIONS. PT TAKING SELF TO BATHROOM WITHOUT ASSISTANCE. BED ALARM NOW ON.
--- NOTE | 2017-02-08 19:45 | NUR ---
RECIEVED REPORT FROM DAY SHIFT NURSE. PT RESTING IN BED. NC IN PLACE. CONT. PULSE OX IN USE. PT DENIES NEEDS, CALL GALLAGHER IN REACH.
--- NOTE | 2017-02-08 22:00 | NUR ---
PT RESTING IN BED. NC IN PLACE AT 95%. CONT PULSE OX REMOVED. LIDOCAINE PATCH REMOVED. TOILETING OFFERED. NO C/O PAIN AT THIS TIME. PT DENIES NEEDS. CALL GALLAGHER IN REACH.
--- NOTE | 2017-02-08 23:35 | NUR ---
PT UP TO BATHROOM WITH ASSIST.
--- NOTE | 2017-02-09 02:09 | NUR ---
PT SLEEPING. NC IN PLACE. CALL LIGHT IN REACH.
--- NOTE | 2017-02-09 03:15 | NUR ---
PT UP TO BATHROOM WITH EVELYN STEVENS. UNSURE IF PT VOIDED. PT BACK TO BED. FOUL SMELL IN ROOM COMING FROM PT'S L FOOT.
--- NOTE | 2017-02-09 05:08 | NUR ---
PT UP TO BATHROOM WITH ASSIST.
--- NOTE | 2017-02-09 05:42 | NUR ---
PT SLEPT MOST OF THE NIGHT. UP TO BATHROOM A FEW TIMES. NO C/O PAIN IN L KNEE. VS STABLE. 2L O2 VIA NC IN PLACE. REFUSED PHYSICAL THERAPY YESTERDAY. L FOOT FOUL SMELLING.
--- NOTE | 2017-02-09 08:07 | NUR ---
PT CALLED TO GO TO BR, WAS VERY GRUMPY. GOT HER TO BR AND ALSO CLEANED HER FLOOR, LOOKED LIKE JASON HAD SPILT. GOT PT BACK TO BED
--- NOTE | 2017-02-09 09:17 | NUR ---
PT CALLED TO GO TO THE RESTROOM. BEFORE STAFF COULD GET TO HER ROOM, SHE WAS TRYING TO GET TO TO THE BATHROOM ALONE. PT HAD A SMALL BM. APPROCHED PT ABOUT A SHOWER, SHE DECLINED. WILL HAVE CHARGE NURSE AND INSTRUMENTAL MUSICIAN APPROCH HER.
--- NOTE | 2017-02-09 10:00 | NUR ---
CELLULAR BIOLOGIST ASKED I SPEAK TO PATIENT SHE IS REFUSING SHOWER MANY DAYS IN A ROW. SPOKE WITH PATIENT IN ROOM. SHE STATES SHE "DOESN'T FEEL LIKE IT" WHEN ASKED WHY SHE DIDN'T WANT TO SHOWER. DISCUSSED WITH PATIENT EXPECTATIONS OF SWINGBED PROGRAM IN CONTINUEING THERAPIES AND ADL'S. ASKED IF SHE WOULD TAKE ONE LATER, SHE STATED YES. THEN ASKED WHAT TIME SHE WOULD LIKE TO SHOWER, SHE SAID "2:30". WE AGREED SHE WOULD LET STAFF ASSIST HER AT 2:30PM TODAY FOR HER SHOWER.
--- NOTE | 2017-02-09 10:46 | NUR ---
CHECKED ON PT, SLEEPING SOUNDLY WITH EVEN AND UNLABORED BREATHING. PT AGREED TO SHOWER AT 1430 THIS AFTERNOON.
--- NOTE | 2017-02-09 11:25 | NUR ---
PT REFUSED TO WORK WITH PHYSICAL THERAPY, WEIGHT BEARING AND NON-WEIGHT BEARING. STATES IT HURTS HER KNEE. OFFERED PRN PAIN MEDICATION, PT REFUSED STATED "IT DON'T WORK AND I DON'T WANT IT." OTHER NON-PHARMACOLOGIC METHODS OF PAIN RELIEF OFFERED AND REFUSED.
--- NOTE | 2017-02-09 13:05 | NUR ---
STAFF ASKED ME TO SPEAK TO PATIENT REGARDING REFUSING PT TODAY. SPOKE WITH PATIENT IN ROOM. PATIENT STATES SHE HAS KNEE PAIN AND DOESN'T WANT TO WORK WITH PT. DISCUSSED HER PAIN AND THAT WE CAN WORK WITH THE DR IF HER PAIN ISNT CONTROLLED. PATIENT THEN STATES "I THINK I SHOULD JUST GO HOME TODAY". DISCUSSED WITH HER THE GOALS OF GETTING HER STRONG ENOUGH TO GO HOME SAFELY. DISCUSSED THAT SHE NEEDS TO CONTINUE PROGRESSING WITH THERAPY. SHE STATES SHE WILL "TRY". CALLED AND SPOKE WITH PATIENTS MARTÍN LEACH. SHE STATES SHE IS PLANNING ON BRINGING PATIENT TO HER HOME AT DISCHARGE BUT SHE IS NOT READY FOR THAT TODAY. STATES SHE HAS AN APPOINTMENT TOMORROW AT NOON IN [facility] BUT COULD PICK HER UP AFTER THAT. SHE STATES HER SISTER IS A NURSE AND IS PLANNING ON HELPING WITH THE PATIENT, ALSO. SHE STATES PATIENT DOESN'T USE OXYGEN AT HOME. SHE IS UNSURE IF THE PATIENT WILL AGREE TO USE OXYGEN IF SHE QUALIFIES FOR IT. SHE IS GOING TO CALL PATIENT AND DISCUSSS THESE ISSUES WITH HER.
--- NOTE | 2017-02-09 13:47 | NUR ---
PT AGREES TO SHOWER. PRN PAIN MEDICATION GIVEN.
--- NOTE | 2017-02-09 14:28 | NUR ---
STANISLAV THE NURSE AND I GAVE PATIENT A SHOWER AND SHE SAID THANK YOU. AND SHAMPOODED HER HAIR ALSO.
--- NOTE | 2017-02-09 14:38 | NUR ---
PT SITTING UP IN CHAIR, EATING LUNCH. PT IS VERY HAPPY AFTER A SHOWER. CLOTHES CHANGED, BED LINENS CHANGED. ICE PACK APPLIED TO FOOT. PT REPORTS MINIMAL PAIN AT THIS TIME.
--- NOTE | 2017-02-09 15:11 | NUR ---
PATIENT CALLED FOR CHOCOLATE ENSURE. DOCTOR IN ROOM
--- NOTE | 2017-02-09 17:57 | NUR ---
PT REFUSED TO WORK WITH PHYSICAL THERAPY. AGREEED TO TAKE SHOWER THIS SHIFT. SKIN INTACT. DISSCUSSED PLAN OF CARE WITH CASE MANAGEMENT. PRN PAIN MEDICATION X1, EFFECTIVE. FAMILY VISIT THIS SHIFT.
--- NOTE | 2017-02-09 21:01 | NUR ---
PT ASSESSMENT COMPLETE. PT RESTING IN BED WATCHING TV. PT ALERT AND ORIENTED, IN GOOD SPIRITS THIS EVENING. PT HAS NO IV ACCESS. PT DENIES ANY SOB, N/V. PT ON 1.5 LPM O2 VIA NASAL CANNULA. PT WEARING ATTENDS D/T INCONTINENCE AT TIMES. PT DENIES ANY PAIN AT THIS TIME. REMOVED LIDODERM PATCH TO LEFT FOOT, FOOT NECROTIC ON TOP OF FOOT AND TO THE GREAT AND SECOND TOE, FOUL ODOR. CALL LIGHT WITHIN REACH. PT DENIES ANY FURTHER NEEDS AT THIS TIME.
--- NOTE | 2017-02-10 00:05 | NUR ---
PT SLEEPING, RR EVEN AND UNLABORED. PT APPEARS COMFORTABLE AT THIS TIME. PT ON 1.5 LPM O2 VIA NASAL CANNULA. CALL LIGHT WITHIN REACH.
--- NOTE | 2017-02-10 00:50 | NUR ---
PT ASSISTED TO BATHROOM WITH SBA, PT TOLERATES AMBULATION WELL. PT INCONTINENT OF URINE, CHANGED GOWN AND ATTENDS. PT BACK IN BED. DENIES ANY FURTHER NEEDS AT THIS TIME. CALL LIGHT WITHIN REACH.
--- NOTE | 2017-02-10 02:36 | NUR ---
PT SLEEPING, RR EVEN AND UNLABORED. PT APPEARS COMFORTABLE AT THIS TIME. PT ON 1.5 LPM O2 VIA NASAL CANNULA. CALL LIGHT WITHIN REACH.
--- NOTE | 2017-02-10 05:59 | NUR ---
PT SLEEPING, RR EVEN AND UNLABORED. PT APPEARS COMFORTABLE AT THIS TIME. PT ON 1.5 LPM O2 VIA NASAL CANNULA. CALL LIGHT WITHIN REACH.
--- NOTE | 2017-02-10 07:13 | NUR ---
PT WS LAYING IN BED WITH KNEE RAISED. SHE SMILED AND WHEN I ASKED HER ABOUT PAIN, SHE DIDN'T PUT A # ON IT, JUST THAT HER KNEE HURT AND SHE WAS WAITING FOR A SHOWER. I TOLD HER I WOULD FOLLOW UP ON THE SHOWER, AND OFFERED TO PRAY FOR HER-SHE ACCEPTED. FLOORLEADER'S COMING IN JUST A FEW MIN.
--- NOTE | 2017-02-10 07:41 | NUR ---
ARASHE REPORT FROM LUCIA STEVENS. PT SLEEPING RR EVEN 16 BPM.
--- NOTE | 2017-02-10 09:50 | NUR ---
PT REPORTS PAIN 6/10 AT LEFT KNEE. ONE TAB NORCO GIVEN WITH AM MEDICATION PASS. WILL MONITOR FOR EFFECTIVENESS, PT VERBALIZED NO OTHER NEEDS
--- NOTE | 2017-02-10 10:11 | NUR ---
PT IS RESTING IN BED WITH CALL LIGHT IN REACH. PT AGREED TO SHOWER AT 11, WILL RETURN THEN TO ASSIST WITH SHOWER. PT ASKED FOR HER COFFEE TO BE HEATED UP.
--- NOTE | 2017-02-10 11:15 | NUR ---
PT AGREED TO SHOWER AT 11, BUT IS NOW REFUSING B/C SHE WAS TOLD SHE WAS GOING HOME TODAY. I AM CHECKING WITH NURSE AND HANDICRAFT OR HOBBY SHOP MANAGER.
--- NOTE | 2017-02-10 11:50 | NUR ---
HIGH-CALORIE/HIGH-PROTEIN FOLDER LEFT FOR PATIENT TO TAKE HOME. SHE CONTINUES TO DRINK ENSURE ENLIVE 3 BOTTLES DAILY. I GAVE HER SOME COUPONS FOR ENSURE ENLIVE. HER NIECE WAS NOT HERE FOR ME TO REINFORCE CALORIES AND PROTEIN TO. WILL CHECK BACK LATER AND SEE IF NIECE COMES TO VISIT.
--- NOTE | 2017-02-10 14:06 | NUR ---
PT REPORTS HER PAIN IS AT A TOLERABLE LEVEL AT THIS TIME. PT IS RESTING IN BED WATCHING T.V.
--- NOTE | 2017-02-10 14:31 | NUR ---
PT ORDERED [facility] LATE AND IS NOW WAITING FOR BRODIE TO ARRIVE. PT WAS EXPLAINED THAT SHE WAS ACTUALLY NOT DISCHARGING TODAY, SO SHE AGREED TO SHOWER AGAIN.
--- NOTE | 2017-02-10 14:58 | NUR ---
PT HAS SHOWERED AND DENTURES WERE CLEANED AND RETURNED. LINENS WERE ALSO CHANGED. PT IS NOW RESTING IN BED VISITING WITH FRIEND
--- NOTE | 2017-02-10 16:12 | NUR ---
PT RPEORTS NO PAIN AT THIS TIME. SHE SAID SHE FEELS COLD, WARM BLANKET PROVIDED. PT VERBALIZED SHE HAS NO OTHER NEEDS AT THIS TIME, SHE IS WATCHING WESTERNS ON T.V.
--- NOTE | 2017-02-10 17:05 | NUR ---
TALKED WITH THE PT AND HER NIECE MARTÍN REGARDING THE PT LACK OF PARTICIPATION IN HER THERAPY. TOLD THE PT THAT SHE NEEDS TO BE DOING HER PHYSICAL THERAPY AND PARTICIPATING IN HER ADL'S ETC, PT STATES SHE DOESN'T WANT TO DO ANYTHING BECAUSE HER KNEE HURTS, EXPLAINED THAT SHE HAS MEDS ORDERED THAT ARE AVAILABLE TO HER TO HELP WITH THAT AND THEN SHE COULD PARTICIPATE. PT INFORMED THAT IF SHE CONTINUES TO NOT PARTICIPATE THEN THERE IS A POSS THAT MEDICARE WILL NOT PAY FOR HER TO BE HERE AND WE WOULD HAVE TO GIVE HER A LETTER OF INTENT TO DC FROM THE HOSPITAL. PT STATED UNDERSTANDING AND SAID SHE WOULD TRY HARDER.
--- NOTE | 2017-02-10 17:11 | NUR ---
PT'S NIECE IN TO VISIT PT, PT REFUSED PHYSICAL THERAPY TODAY, NIECE FEELS PT IS NOT READY TO GO HOME PT SAYS SHE IS. BRUNO AND PRIMARY RN IN ROOM TO DISCUSS WITH PT THE NEED TO WORK WITH PHYSICAL THERAPY, PT AGREES TO WORK WITH PHYSICAL THERAPY, MONIKA PHYSICAL THERAPY NTIFIED THAT PT IS AGREEABLE TO WORK WITH PHYSICAL THERAPY AT THIS TIME. PT NOW UP AMBUALTING IN HALLS WITH PHYSICAL THERAPY NOW
--- NOTE | 2017-02-10 17:16 | NUR ---
PT REPORTED SEVERE PAIN THIS AM NORCO ONE TAB ADMINISTERED, PT HAS REPORTED NO PAIN SINCE AND REFUSED PAIN COVERAGE INCLUDING TYLENOL. PT ALSO INITIALLY REFUSED PHYSICAL THERAPY, AFTER BRUNO BEJARANO RN IN ROOM TO DISCUSS NEED TO PARTICIPATE WITH PHYSICAL THERAPY, PT AGREED AND AMBULATED IN HALLS.
--- NOTE | 2017-02-10 18:23 | NUR ---
PT IS SITTING UP IN BED WITH CALL LIGHT IN REACH. PT DID NOT NEED ANYHTING ELSE AT THE MOMENT
--- NOTE | 2017-02-10 20:15 | NUR ---
PT ASSESSMENT COMPLETE. PT DENIES ANY PAIN, N/V, SOB. PT ON 1.5 LPM O2 VIA NASAL CANNULA. PT RESTING IN BED QUIETLY. REMOVED LIDODERM PATCH FROM LEFT FOOT, WOUNDS UNCHANGED TO LEFT FOOT. PT DENIES ANY NEEDS AT THIS TIME. CALL LIGHT WITHIN REACH.
--- NOTE | 2017-02-10 23:41 | NUR ---
ASSISTED PATIENT TO THE BATHROOM AND BACK TO BED. PATIENT REFUSED TO CHANGED DAY CLOTHES TO NIGHT GOWN. CALL LIGHT WITHIN REACH.
--- NOTE | 2017-02-11 00:45 | NUR ---
PT SLEEPING, RR EVEN AND UNLABORED. PT ON 1.5 LPM O2. PT APPEARS COMFORTABLE AT THIS TIME. CALL LIGHT WITHIN REACH.
--- NOTE | 2017-02-11 04:11 | NUR ---
PT SLEEPING, RR EVEN AND UNLABORED. PT ON 1.5 LPM O2. PT APPEARS COMFORTABLE AT THIS TIME. CALL LIGHT WITHIN REACH.
--- NOTE | 2017-02-11 05:05 | NUR ---
PATIENT ASKED FOR CUP OF COFFEE, GIVEN.
--- NOTE | 2017-02-11 07:33 | NUR ---
BEDSIDE REPORT FROM LUCIA STEVENS, PT SITTING UP IN BED ALERT AND ORIENTED.
--- NOTE | 2017-02-11 08:10 | NUR ---
PATIENT SITTING UP IN BED DRINKING COFFEE. SHE REFUSED SHOWER DUE TO HAVING ONE YESTERDAY AND THINKS SHE MIGHT BE DISCHARGED TODAY. HANDS AND FACE WASHED. REFUSED ORAL CARE AT THIS TIME. NO OTHER NEEDS. CALL BUTTON IN REACH.
--- NOTE | 2017-02-11 08:41 | NUR ---
PT CONSUMED VERY SMALL AMOUNT OF BREAKFAST, ENSURE GIVEN.
--- NOTE | 2017-02-11 09:27 | NUR ---
PT REPORTS NO NEED FOR PAIN CONTROL AT THIS TIME.
[2017-02-11] MEDS ORDERED: HYDROCODON-ACE1 EA10 PO (09:32)
[2017-02-11] MEDS ORDERED: LIDODERM1 EACH TD (09:51)
--- NOTE | 2017-02-11 10:20 | NUR ---
PATIENT UP WORKING WITH PT.
--- NOTE | 2017-02-11 10:45 | NUR ---
ORDERS/RT QUALIFIER/CLINICAL NOTES FAXED TO [facility] FOR FWW AND HOME OXYGEN NEED. FAX CONFIRMATION RECEIVED.
--- NOTE | 2017-02-11 11:25 | NUR ---
PT REPORTS PAIN IN LEFT KNEE "REALLY BAD" , PT AGREED TO TAKE NORCO AT THIS TIME. ADMINSITERED ONE TAB NORCO. PHARMACY IN ROOM TALKING WITH PT NIECE ON MEDICATION EDUCATION CONSULT. OCCUPATIONAL THERAPY ALSO IN PT ROOM TO TALK WITH NIECE IN REGARDS TO WALKING WITH PXYGEN TUBING SAFELY
--- NOTE | 2017-02-11 11:45 | NUR ---
SPOKE WITH JANAE AT [facility]. THEY WILL BE ABLE TO SET UP OXYGEN AT [facility] BETWEEN 2-4 PM. THEY WILL DELIVER WALKER HERE. UPDATED NEICE AND PATIENT.
--- NOTE | 2017-02-11 13:00 | NUR ---
WALKER WAS DELIVERED TO ROOM. PORTABLE OXYGEN TANK IN ROOM. NEICE GIVEN PHONE NUMBER FOR [facility] TO CALL WHEN THEY ARE READY TO LEAVE.
--- NOTE | 2017-02-11 14:00 | NUR ---
NIECE TO NURSES STATION TO REPORT PT IS DETERMINED TO GO TO HER HOME INSTEAD OF HER [facility] WHICH HAS BEEN THE PLAN. (DISCHARGE PLANNING) AND PRIMARY RN TO PT ROOM TO DISCUSS THE CONCERNS FOR PT SAFTY GOING HOME ALONE. PT AGREES TO GO TO [facility] HOUSE PREVIOUSLY PLANNED. EDUCATION ON HOME SAFETY WITH OXYGEN. DISCUSSED WITH PT AND NIECE MEDICATIONS LAST DOSE NEXT DOSE.
== END 2017-02-11 14:26 | disposition home or self-care (01) | DRG 947 ==
LOC: MS 10:10
PROVIDERS: ADMIT Internal Medicine
PROC: 3E0234Z Introduction of Serum, Toxoid and Vaccine into Muscle, Percutaneous Approach (ICD-10-PCS; principal; 2017-02-11)
DX: R53.81 Other malaise (principal); I50.31 Acute diastolic (congestive) heart failure; E46 Unspecified protein-calorie malnutrition; I96 Gangrene, not elsewhere classified; D50.9 Iron deficiency anemia, unspecified; I48.0 Paroxysmal atrial fibrillation; Z23 Encounter for immunization; I73.9 Peripheral vascular disease, unspecified; I71.4 Abdominal aortic aneurysm, without rupture; F17.210 Nicotine dependence, cigarettes, uncomplicated; M17.12 Unilateral primary osteoarthritis, left knee; J43.9 Emphysema, unspecified; J44.9 Chronic obstructive pulmonary disease, unspecified; R09.02 Hypoxemia; Z66 Do not resuscitate
CPT/HCPCS: 90662; 94668; 94760; 94761; 94762; 97110; 97116; 97162; 97165; 97530; G0008

== ENCOUNTER 2017-02-14 13:26 | Inpatient (IN) | payer MEDICARE, OTHER ==
[~2017-02-14] VITALS: Ht 154.9 cm; Wt 33.6 kg
[~2017-02-14 13:26] MED LIST changes: +CARDIZEM LA360 MG PO; +LIDODERM1 EACH TD
--- NOTE | 2017-02-14 20:52 | EKG ---
[facility] [address] [place] [address] Signed Atrial fibrillation with rapid ventricular response with premature ventricular or aberrantly conducted complexes Septal infarct (cited on or before 01-FEB-2017) Abnormal ECG When compared with ECG of 01-FEB-2017 15:24, Atrial fibrillation has replaced Sinus rhythm ST elevation has replaced ST depression in Lateral leads Confirmed by XAVIER BLOCK MD ([id number]) on 02/14/2017 8:52:19 PM Electronically Signed By: XAVIER BLOCK MD 02/14/172051 PATIENT NAME: URIEL CHAVIS Electrocardiogram DATE OF : 31 PHYSICIAN: XAVIER BLOCK MD REPORT #: [id number] REPORT IS CONFIDENTIAL AND NOT TO BE RELEASED WITHOUT AUTHORIZATION
--- NOTE | 2017-02-15 00:43 | NUR ---
PT ARRIVED TO ROOM 128 AT 1940. PT UNABLE TO MOVE R ARM, HAS EXPRESSIVE APHAGIA, FOLLOWS COMMANDS. PT [facility] AT BEDSIDE. PT ONSET OF SYMPTOMS STARTED AT 0630 02/14/17 WHEN UP TO BR. PT O2 STARTED AT 4L NC, PLACED ON OXYMASK FOR SPO2 82-87%. INCREASED TO 6L AT 2130, 8L AT 2215. DECREASED TO 5L AT 0015 FOR SPO2 96%. PLACED TEMP PROBE TRINIDAD AT 2129. 40MG LASIX GIVEN IV AT THAT TIME. CARDIZAM GTT STARTED AT 1999 AT 15MG/HR. PT HR 115'S-130'S. DR BLOCK UPDATED AT 2154 AND 5MG LOPRESSOR GIVEN IV. PICS TO CHART OF PT L NECROTIC FOOT. PT DENIES PAIN. NO SENSATION TO L FOOT, UNABLE TO FIND PULSES WITH DOPPLER. PT REPOSITIONED WITH PILLOWS, HOWEVER REMAINS RESTLESS AND MOVES AROUND IN BED. BEDSIDE SWALLOWING SCREEN COMPLETED AT 2044. PT PLACED ON NPO AFTER 2 TEASPOONS OF WATER FOR THROAT CLEARING. PT UNABLE TO STICK OUT TONGUE OR SMILE.
--- NOTE | 2017-02-15 01:39 | NUR ---
PT REMAINS RESTLESS, WHEN ASKED IF RESTLESS AT HOME SHAKES HEAD YES. DENIES PAIN, DENIES SOB. NO NEEDS. PT NOW ABLE TO LIFT R ARM AND HOLD FOR A FEW SECONDS, DOES DRIFT. UNABLE TO SQUEEZE R HAND. DENIES NUMBNESS OR TINGLING TO THAT ARM/HAND. CONTINUES TO HAVE EXPRESSIVE APHAGIA, UNABLE TO SMILE OR STICK OUT TONGUE. PT DEMONSTRATES USE OF CALL LIGHT. BED ALARM ON FOR SAFETY AND RAILS UP X3. PT REPOSITIONING SELF IN BED CONTINUOUSLY. 5MG LOPRESSOR GIVEN IV. CARDIZEM GTT REMAINS AT 15MG/HR.
--- NOTE | 2017-02-15 04:00 | NUR ---
PT CONVERTED TO S.R. WITH FREQUENT PAC'S AT 0226. HR 80'S. PT TRINIDAD LEAKED URINE AROUND CATHETER, CHANGED DRAW SHEET AND CHUX. PT DENIES PAIN OR NEEDS. UNCHANGED ASSESSMENT FROM PREVIOUS.
--- NOTE | 2017-02-15 05:34 | NUR ---
PT USED CALL LIGHT, HOLDING L KNEE, AND GRIMACING. ASKED PT IF HURTING. NODDED HEAD YES. GIVEN TYLENOL 650MG VA. PLACED WARM PACK TO L KNEE. DECREASED CARDIZEM GTT TO 10MG/HR FOR HR 80'S. 5MG LOPRESSOR GIVEN IV.
--- NOTE | 2017-02-15 05:38 | NUR ---
PLACED TEGASORB HYDROCOLLOID DRESSING TO PT COCCYX D/T BREAKDOWN PRIOR TO ADMISSION. PICTURES TO CHART OF WOUND.
--- NOTE | 2017-02-15 06:26 | NUR ---
AT 0603 PT HR BACK INTO A-FIB WITH RATE 110'S-120'S. PT NOTED TO HAVE 1CM SKIN TEAR ON R ARM BELOW BP CUFF. PLACED NON-ADHERANT DRESSING AND WRAPPED WITH GAUZE.
--- NOTE | 2017-02-15 07:03 | NUR ---
PT CONTINUES TO C/O OF PAIN IN L KNEE, HOLDING KNEE AND GRIMACING. DR BLOCK NOTIFIED, PT GIVEN 2MG MORPHINE IV FOR PAIN. REFUSES PAIN PACK. USES CALL LIGHT APPROPRIATELY.
--- NOTE | 2017-02-15 07:58 | NUR ---
REPORT RECEIVED FROM RODNEY MADDEN. PT IS SITTING UP IN BED AND APPEARS VERY UNCOMFORTABLE. PT INDICATES NONVERBALLY THAT HER LEFT KNEE IS CAUSING HER 10/10 PAIN. PT RECENTLY GIVEN DOSE OF MORPHINE AND INDICATES THAT IT HELPED BUT SHE IS STILL VERY PAINFUL. ATTEMPTED TO GIVE PATIENT SMALL AMOUNT OF WATER THROUGH A STRAW AND PATIENT ABLE TO SWALLOW WATER WITHOUT TOO MUCH PROBLEM, BUT SOME DRIBBLING OUT OF LEFT SIDE OF MOUTH NOTED. PT HAS AN OBVIOUS RIGHT SIDED FACIAL DROOP. PT HAS MODERATE WEAKNESS OF HER RIGHT ARM BUT CAN GROSSLY MOVE IT. PT HAS FULL MOTION OF HER RIGHT LEG. PT SWITCHED TO A NASAL CANNULA AT 3 L AT THIS TIME. PT ALSO ABLE TO TAKE A FEW BITES OF CHOCOLATE PUDDING WITHOUT DIFFICULTY. WILL DISCUSS WITH MD DIFFERENT PAIN MEDICATION POSSIBILITIES. PT HAS TRINIDAD CATHETER DRAINING YELLOW URINE.
--- NOTE | 2017-02-15 08:07 | NUR ---
PATIENT ON DILT GTT AT 15 MG/HR AT THIS TIME PT'S HAS BEEN FLIPPING BACK AND FORTH FROM AFIB INTO SINUS WITH [employer] PACs. PT CURRENTLY IN SINUS RHYTHM SINCE 751. HEART RATE IS 77-82 AT THIS TIME. SP02 IS 94% ON 3 L NC.
--- NOTE | 2017-02-15 08:42 | NUR ---
PATIENT GIVEN 2 MG IV MORPHINE FOR 10/10 PAIN IN HER LEFT KNEE. ASSESSMENT COMPLETE. PT ABLE TO TAKE HER MORNING ASPIRIN WITH PUDDING BUT PATIENT DOES NOT SEEM TO HANDLE LIQUIDS AND FOOD VERY WELL. PT HAS A LOOSE SOUNDING COUGH. PT IS ON 4 L NC WITH SP02 ONLY 90%. PT'S LEFT FOOT IS BLACK ON TOP AND THE FIRST THREE TOES ARE BLACK, AND THE LAST TWO TOES ARE WHITE. THERE IS A FOUL ODOR AND SOME CRUSTY DRAINAGE EVIDENT ON THE FOOT. NO PULSES CAN BE FOUND, EVEN BY DOPPLER. PT CAN GROSSLY MOVE HER RIGHT ARM BUT DOES NOT HAVE A TEST BORER HELPER. PT CAN MOVE RIGHT LEG BUT IT IS WEAKER. CONTINUE TO MONITOR CLOSELY. BED ALARM ON.
--- NOTE | 2017-02-15 10:19 | NUR ---
PHYS. THERAPY IN ROOM WORKING WITH PATIENT. PATIENT ABLE TO SIT AT EDGE OF BED BUT DOESN'T WANT TO GET OUT OF BED OR EVEN TRY TO STAND AT EDGE. PATIENT NOW BACK IN BED AND RESTING. IVF STARTED AT 50 ML/HR AND PATIENT RECEIVING IV MAGNESIUM. PT TO ALSO RECEIVE IVANZ ANTIBIOTIC AND ALSO POTASSIUM REPLACEMENT. CONTINUE TO MONITOR AND BED ALARM ON. PT'S CARLEE PLAZA CALLED EARLIER AND GIVEN UPDATE ON PATIENT.
[2017-02-15] MEDS ORDERED: DILTIAZEM ER360 MG PO (10:47)
--- NOTE | 2017-02-15 11:18 | NUR ---
PATIENT RESTING AT THIS TIME. PATIENT STILL INDICATING BY NODDING HER HEAD THAT HER PAIN IS OKAY AND DENIES NEED FOR PAIN MEDICATION AT THIS TIME. PT RECEIVING IVF AT 50 ML/HR, AN ANTIBIOTIC, IV POTASSIUM REPLACEMENT, AND STILL REMAINS ON DILT GTT AT 15 MG/HR. HEART RATE REMAINS IN A SINUS RHYTHM WITH FREQ PACs. SP02 IS 94% ON 4 L NC. WILL ATTEMPT TO TITRATE THIS DOWN TOLERATED. BED ALARM ON FOR SAFETY.
--- NOTE | 2017-02-15 14:57 | NUR ---
PATIENT'S NIECE'S AND FAMILY IN ROOM AND AT BEDSIDE. PT REMAINS IN SINUS RHYTHM ON DILT GTT AT 15 MG/HR. AT 1432, PATIENT BECAME TACHYCARDIC WITH A HR IN THE 132, VERY REGULAR. THIS ONLY LASTED ABOUT 45 SECONDS. PT WAS RESTING IN BED AND DENIED FEELING ANY DIFFERENT. CONTINUE TO MONITOR.
--- NOTE | 2017-02-15 17:55 | NUR ---
PATIENT GIVEN BED BATH AND TOLERATED WELL. PT'S LEFT FOOT WASHED WITH STERILE WATER AND CHLORAHEXADINE SOAP WHICH HELPED DECREASE THE FOUL ODOR. BED LINENS CHANGED. PT HAS CONTINUED TO HAVE SOME SMEARS BUT HASNT' HAD A BM. PT INDICATING THAT SHE WANTS SOME COFFEE TO HER FAMILY. PT SAT UP IN BED AND GIVEN SMALL SIPS OF COFFEE, AND TOLERATED THIS BETTER THAN SHE DID EARLIER IN THE DAY WHEN SHE ATTEMPTED WATER. PT TO HAVE SWALLOW EVAL TOMORROW WITH THE SPEECH THERAPIST. FAMILY AWAITING THIS CONSULTATION AND AWARE OF THE POTENTIAL OUTCOMES IT RELATES TO INABILITY TO SWALLOW EFFICIENTLY. PT UP TO BSC NOW AT THIS TIME TO ATTEMPT A BM BUT UNSUCCESSFUL. NOW BACK IN BED AND BED ALARM ON. CONTINUE TO MONITOR.
--- NOTE | 2017-02-15 23:40 | NUR ---
PT FRUSTRATED WITH TANGLED O2 TUBING, IV TUBING, GOWN. TOOK OFF LEADS AND ACCIDENTLY PULLED OUT IV. PLACED SMALLER GOWN ON PT AND NEW LEADS. DENIES PAIN IN L KNEE. NO OTHER NEEDS. PT FIDGETING AND RESTLESS IN BED.
--- NOTE | 2017-02-16 00:38 | NUR ---
PT USED CALL LIGHT. C/O OF L KNEE PAIN. HYDROCONE ELIXIR GIVEN PO WITH SYRINGE. TOLERATED WELL. NO OTHER NEEDS. NIH SCORE UNCHANGED FROM FIRST ASSESSMENT.
--- NOTE | 2017-02-16 03:49 | NUR ---
PT C/O OF KNEE PAIN, HOLDS L KNEE AND GRIMACES. NODS HEAD WHEN ASKED IF WOULD LIKE PAIN MEDICATION. 7.5 HYDROCODONE ELIXIR GIVEN VIA SYRINGE INTO PT MOUTH. TOLERATED WELL, NO COUGHING.
--- NOTE | 2017-02-16 04:43 | NUR ---
PT USED CALL LIGHT FOR C/O OF L KNEE PAIN. HOLDING L KNEE. NODS YES WHEN ASKED IF IN PAIN. ADMINISTERED 2MG MORPHINE IV.
--- NOTE | 2017-02-16 08:17 | NUR ---
PT AWAKE AND VITAL SIGNS TAKEN. ASSESSMENT COMPLETED, PT DENIES C/O. PT ABLE TO SPEAK ONE WORD ALSO MOVES HEAD FOR "YES" AND "NO". LARGE AREA ON RIGHT FOOT BLACK, NO PULSES NOTED - LEFT KNEE RED WITH BLACK AREA IN THE MIDDLE OF KNEE NOTED WITH ODOR IN ROOM.
--- NOTE | 2017-02-16 09:41 | NUR ---
S.T. HERE TO ASSESS SWALLOW. PT ABLE TO TAKE NECTAR THICK FLUIDS BY SPOON. DR. BLOKC IN TO ASSESS PT.
--- NOTE | 2017-02-16 09:48 | NUR ---
DR. BLOCK ALSO TALKED WITH PT ABOUT RECOVERING IN A CUSTODIAL. PT STATES "OK". FAMILY ALSO INVOLVED IN DISCUSSION.
--- NOTE | 2017-02-16 11:17 | NUR ---
P.T. HERE TO WORK WITH PT AND O.T. ALSO HERE TO WORK WITH PT.
--- NOTE | 2017-02-16 12:42 | NUR ---
ASSESSMENT AND VITAL SIGNS COMPLETED, PT C/O OF LEFT KNEE PAIN, MEDICATED WITH LORTAB ELIXAR 15ML PO, PT JENS WELL.
--- NOTE | 2017-02-16 13:16 | NUR ---
DILTIAZEM GTT OFF AT THIS TIME.
--- NOTE | 2017-02-16 15:59 | NUR ---
PT AWAKE, WARM BLANKET GIVEN, PT C/O OF LEFT KNEE PAIN. MEDICATED WITH LORTAB ELXIER.
--- NOTE | 2017-02-16 17:20 | NUR ---
VIVI LEVY DC'D PER DR. YATES. PT JENS KO.
--- NOTE | 2017-02-16 18:14 | NUR ---
REPORT GIVEN TO BRIANNE STEVENS ON MED/SURG.
--- NOTE | 2017-02-16 19:05 | NUR ---
RECEIVED REPORT FROM DAY SHIFT RN. PATIENT IS RESTING IN BED WATCHING TV. PATIENT IS SHAKES HEAD NO WHEN ASKED IF SHE NEEDS ANYTHING. CALL LIGHT IN REACH.
--- NOTE | 2017-02-16 22:39 | NUR ---
PATIENT ASSESMENT COMPLETED. PATIENT SHOOK HER HEAD YES WHEN ASKED ABOUT PAIN AND POINTED TO HER LEFT KNEE. PATIENT SHOOK HEAD YES. PATIENTS EVENING MEDICATIONS GIVEN PER ORDER. PATIENT GIVEN PRN PAIN MEDICATION AT THIS TIME. PATEINT HAS MULTIPLE WOUNDS THAT ARE DOCUMENT IN ASSESMENT AND PICS ARE IN THE CHART. PATIENT IS ON TELE #8 AND IN AN IRREGULAR RHYTHM. BED ALARM IS ON FOR PATIENT SAFETY. PATIENTS CALL LIGHT IS IN REACH AND SHE DOES USE IT APPROPRIATELY.
--- NOTE | 2017-02-16 23:15 | NUR ---
PATIENT CONTINUES TO HAVE NO URINE OUTPUT SINCE TRINIDAD REMOVAL. PATIENT BLADDER SCANNED FOR 97MLS. PLACED CALL TO DR. BLOCK. NO NEW ORDERS AT THIS TIME. DR BLOCK WOULD LIKE US TO CONTINUE TO MONITOR PATIENT. PATIENTS IV ABX ARE COMPLETED. PATIENT IS SL NOW PER ORDER.
--- NOTE | 2017-02-17 01:02 | NUR ---
PATIENT IS RESTING IN BED WITH EYES CLOSED. BREATHING IS EVEN AND UNLABORED, RR 17. PATIENT REMAINS ON TELE #8, IRREGULAR, AND HRIS 80. BED ALARM ON AND CALL LIGHT IN REACH.
--- NOTE | 2017-02-17 03:22 | NUR ---
PATIENT ALERTED STAFF BY USING THE CALL LIGHT THAT SHE WAS IN PAIN. WHEN ASKED WHERE THE PAIN WAS PATIENT POINTED TO HER KNEE. PATIENT GIVEN PRN PAIN MEDICATION PER ORDER. PATIENT REPOSTIONED IN BED. PATIENTS ATTEND REMAINS DRY. BLADDER SCANNED PATIENT FOR 107ML IN BLADDER. WILL CONTINUE TO MONITOR. OFFERED PATIENT A DRINK. PATIENT REFUSED. WILL CONTINUE TO OFFER PATIENT DRINKS. BED ALARM ON AND CALL LIGHTIN REACH.
--- NOTE | 2017-02-17 04:18 | NUR ---
PATIENT IS RESTING IN BED WITH EYES CLOSED. RR 16. TELE #8, IRREGULAR, HR 73
--- NOTE | 2017-02-17 05:17 | NUR ---
PATIENT RESTED WELL FOR THE MAJORITY OF THE SHIFT. PATIENT IS ON A DYSPHAGIA-PUREED DIET W/NECTAR THICK. PATIENT HAS ONLY HAD MINIMAL INTAKE. PATIENT DENIES THIRST. PATIENT IS ONLY ABLE TO COMMUNICATE SMALL WORDS. PATIENT IS ABLE TO SHAKE HEAD YES AND NO TO COMMUNICATE. PATIENT IS ON TELE #8, IRREGULAR RYTHYM, AND HR IN THE MID 70'S. PATIENT IS ON ASPIRACTION PRECAUTIONS. PATIENT IS ON 3L VIA NC. PATIENT [place] [facility] [place] HAS NOT BEEN [place]OB ON THIS SHIFT. PATIENT USES CALL LIGHT APPROPRIATELY, BUT BED ALARM IS ON FOR SAFETY. PATIENT IS SL X2 AND BOTH IVS FLUSH WELL. PATIENT RECIEVED X2 PRN PAIN MEDICATION FOR PAIN IN HER LEFT KNEE. PATIENT IS STILL DUE TO VOID, MD IS AWARE. PATIENT HAS WOUNDS ON LEFT FOOT, COCYX, AND LEFT KNEE.
--- NOTE | 2017-02-17 05:58 | NUR ---
PATIENT ASSISTED TO THE BSC. PATIENT WAS ABLE TO VOID 400ML. PATIENT ASSISTED BACK TO THE BED. PATIENT TOLERATED ACTIVITY WELL. PATIENT IS NOW BACK IN BED RESTING. PATIENTS BED ALARM IS ON FOR SAFETY AND CALL LIGHT IN REACH.
--- NOTE | 2017-02-17 07:44 | NUR ---
PT AWAKE, ALERT, ORIENTED X 4. DENIES PAIN AT THIS TIME. PT IS SITTING UP IN RECLINER. PROVIDED PT WITH DIABETIC DIET EDUCATION. PT VERBALIZED UNDERSTANDING.
--- NOTE | 2017-02-17 08:15 | NUR ---
patient resting in bed with eyes closed. family in room.
--- NOTE | 2017-02-17 08:50 | NUR ---
RN assisting patient with breakfast. family in room.
--- NOTE | 2017-02-17 09:20 | NUR ---
patient resting in bed with eyes closed. family in room.
--- NOTE | 2017-02-17 09:40 | NUR ---
FAXED CHART NOTES TO [facility] AFTER TALKING WITH [facility] FOR A BED. FAXED FACESHEET, ER NOTES, H AND P, PROG NOTES, IMAGING, MEDS, LABS AND PT, OT, AND ST EVALS AND NOTES.
--- NOTE | 2017-02-17 10:15 | NUR ---
washed patients face and hands. oral care done. patient adjusted in bed. RN to give meds. Niece in room. No need at this time.
--- NOTE | 2017-02-17 10:16 | NUR ---
PT IN BED, NIECE WAS AT BEDSIDE THIS AM, AND ASSISTED PT IN DRINKING APPLE JUICE, AND EATING SOME OF HER BREAKFAST. PT ATE APROXIMATELY 10% OF HER BREAKFAST, AND AT 1 CUP OF PUDDING. PT REFUSING FUTHER PO INTAKE AT THIS TIME, WILL CONTINUE TO ENCOURAGE PT TO EAT AND DRINK. PT SAID "YES", AND POINTED AT LEFT KNEE WHEN ASKED IF SHE WAS HAVING PAIN. GAVE LORTAB ELIXER 15 ML. PT ON 3L O2 VIA NC, LUNGS DIMINISHED. RIGHT SIDED WEAKNESS APARENT TO LEFT UPPER AND LOWER EXTREMITY, SLIGHT IMPROVEMENT IN STRENGTH NOTED WHEN COMPARED WITH YESTERDAY EVENING. LEFT KNEE WOUND REMAINS BLACK/RED. LEFT FOOT WOUND REMAINS BLACK. PT CONTINUES TO BE UNABLE TO SPEAK MORE THAN SHORT 1 WORD ANSWERS AND QUESTIONS. USES CALL LIGHT APROPRIATELY. CALL LIGHT IN REACH.
--- NOTE | 2017-02-17 11:04 | NUR ---
DR. BLOCK IN TO SEE PT, ASSESSING PT. PT'S NIECE MARTÍN IS AT BEDSIDE. PT HAS LOOSE MOIST COUGH.
[2017-02-17] MEDS ORDERED: SULFATRIM 800-120 ML PO (11:20)
[2017-02-17] MEDS ORDERED: AUGMENTIN125 MG/51 PO (11:21)
[2017-02-17] MEDS ORDERED: METOPROLOL TART25 MG PO (11:22)
[2017-02-17] MEDS ORDERED: ASPIRIN EC81 MG PO (11:22)
[2017-02-17] MEDS ORDERED: HYDROCODONE-AC473 ML PO (11:24)
--- NOTE | 2017-02-17 11:36 | NUR ---
PT HAS NOT HAD A BM SINCE 02/13/17. ADDED ORDER FOR BISACODYL SUPPOSITORY. NOTIFIED DR. BLOCK OF ABOVE NOTED.
--- NOTE | 2017-02-17 11:56 | NUR ---
PT UP TO BEDSIDE COMMODE WITH 2 PERSON ASSIST. PT VOIDED 150 CC URINE, BRIEF CHANGED, AND PT TRANSFERED BACK TO BED. POSITIONED FOR COMFORT. RESHMA, NIB INSPECTOR PROVIDING AM CARE, WASHING FACE AND HANDS. PT REFUSED TO CHANGE GOWN, WHICH IS SLIGHTLY SOILED FROM COFFEE. NOTIFIED PT THAT AN ORDER WAS PLACED FOR HER TO RECIEVE A BISACODYL SUPPOSITORY, SHE HAD NOT HAD A BOWEL MOVEMENT SINCE 02/13/17. PT SHOOK HER HEAD NO, ATTEMPTED TO SPEAK, SPEECH UNINTELIGIBLE. REPEATED THAT PT HAD NOT HAD A BM IN THE LAST 4 DAYS, PT SHOOK HER HEAD NO, WHEN ASKED WHEN SHE LAST HAD A BM, PT INDICATED THAT SHE HAD A BM 2 DAYS AGO, HOLDING UP 2 FINGERS. ASKED PT IF SHE WOULD ACCEPT THE SUPPOSITORY, PT SHOOK HER HEAD NO. BOWEL TONES ACTIVE X 4 QUADRANTS.
--- NOTE | 2017-02-17 12:09 | NUR ---
NOTIFIED DR. BLOCK THAT PT REFUSED SUPPOSITORY, AND THAT THIS RN CAN FIND NO RECORD OF PT HAVING A BM SINCE ADMISSION.
--- NOTE | 2017-02-17 14:21 | NUR ---
PT IN BED, HEAD OF BED ELEVATED. PT DRANK 4 SIPS OF THICKENED COFFEE. PT THEN DRANK A LITTLE MORE THAN 1/2 OF THICKENED FRUIT PUNCH CLEAR ENSURE WITH ASSISTANCE FROM THIS RN. PT SPILLED SOME COFFEE ON HER GOWN, THIS RN ASSISTED PT IN CHANGING INTO A FRESH GOWN. PT STILL UNABLE TO VERBALIZE MORE THAN ONE WORD ANSWERS AT MOST. DID COMMUNICATE HER PREFERENCES FOR DINNER AND BREAKFAST USING EITHER ONE OR TWO FINGERS TO INDICATE HER CHOICE BETWEEN TWO ITEMS. PT SHOOK HER HEAD AND SAID "NO" WHEN ASKED IF SHE WAS EXPERIENCING PAIN AT THIS TIME. NO S/S DISTRESS, DISCOMFORT AT THIS TIME.
--- NOTE | 2017-02-17 14:50 | NUR ---
TREVON SKELTON CALLED THIS RN TO PT'S ROOM, NOTIFIED THIS RN THAT PT'S OXYGEN SATURATION LEVEL WAS LESS THAN 90%. OXYGEN SATURATION LEVEL WAS 87%, THIS RN INCREASED PT'S OXYGEN LEVEL TO 4L VIA NC, THEN PLACED PT ON OXY MASK AT 6 LITERS. OXYGEN SATURATION LEVEL 88-92% ON 6L. CALLED AYLEEN RT, REQUESTED SHE SEE PT. AYLEEN IN ROOM WITH PT, INCREASED OXYGEN TO 15L VIA OXY MASK. OXYGEN SATURATION LEVEL 91%, HR 60.
--- NOTE | 2017-02-17 14:55 | NUR ---
PATIENT IN BED. SAT'S WERE BELOW 90% NOTIFIED RN. ADJUSTED PATIENT TO SIT STRAIGHTER IN BED. DR. AND RT IN ROOM.
--- NOTE | 2017-02-17 15:13 | NUR ---
NOTIFIED DR. BLOCK OF PT'S DESATURATION OF OXYGEN LEVEL, AND NEED TO INCREASE OXYGEN TO 15L VIA OXY MASK TO INCREASE SATURATION LEVEL TO GREATER THAN 89%. DR. BLOCK IN TO SEE PT, ASSESSED PT, AND SLOWLY TITRATED PT'S OXYGEN LEVEL DOWN TO 3L VIA OXY MASK. PT IS ON A CONTINOUS PULSE OX, AND OXYGEN LEVEL HAS REMAINED AT 90% OR GREATER THUS FAR. ENCOURAGED PT TO DEEP BREATH AND COUGH. LUNG SOUNDS REMAIN COARSE, AND PT CONTINUES TO HAVE A LOOSE MOIST NON PRODUCTIVE COUGH. PT C/O PAIN TO LEFT KNEE, POINTING AT KNEE AND NODDING YES WHEN ASKED IF SHE WERE IN PAIN. GAVE LORTAB ELIXER 15 ML PO PRN. PT TOLERATED THIS WELL, NO S/S ASPIRATION. OXYGEN SATURATION LEVEL IS CURRENTLY 92% ON 3L VIA OXY MASK.
--- NOTE | 2017-02-17 15:57 | NUR ---
PT IN BED, RESTING WITH EYES CLOSED. TELE # 8 ON, HR 67. OXYGEN SATURATION LEVEL 95% ON 3L O2 VIA OXY MASK.
--- NOTE | 2017-02-17 16:23 | NUR ---
TALKED WITH CARLEE RESENDIZ AND INFORMED HER OF PT DC TO [facility] PLANNED FOR TOMORROW.
--- NOTE | 2017-02-17 16:50 | NUR ---
PATIENT RESTING IN BED WITH EYES CLOSED.
--- NOTE | 2017-02-17 17:45 | NUR ---
2 PERSON ASSIST FROM BSC TO BED. [facility] DONE CLEAN ATTENDS. CLEAN GOWN. BED ALARM ON. CALL BUTTON IN REACH. NO OTHER NEEDS AT THIS TIME.
--- NOTE | 2017-02-17 17:56 | NUR ---
THIS RN AND JANITORIAL SERVICES SUPERVISOR [facility] ASSISTED PT TO EAT 10% OF DINNER. PT DECLINED FUTHER PO INTAKE AT THIS TIME. PT WAS OFFERED CLEAR ENSURE, PT TOOK SEVERAL BITES, APROXIMATELY 4, AND DECLINED FUTHER. PT THEN REQUESTED TO RETURN TO BED USING GESTURES AND NODDING. HAD PT SIT UP ON BEDSIDE COMMODE TO ATTEMPT TO VOID, PT WAS UNABLE TO VOID, TRANSFERED PT BACK TO BED WITH [address]. NOT[address] BLOCK THAT PT HAS ONLY VOIDED 150 CC THIS SHIFT, AND ONLY HAD 50 CC PO FLUID IN IN THE LAST [address] BLOCK VERBALIZED UNDERSTANDING, NO NEW ORDERS AT THIST NAA.
--- NOTE | 2017-02-17 19:20 | NUR ---
RECEIVED REPORT FROM RN. PATIENT DENIES NEEDS AT THIS TIME.
--- NOTE | 2017-02-17 21:52 | NUR ---
NOTIFIED TELE-PHARMACY OF VANCOMYCIN LEVEL 5.8. WILL REDOSE
--- NOTE | 2017-02-17 22:07 | NUR ---
PT PILLOWS ON THE FLOOR AND BLANKETS ALL MESSED UP ON BED, PT APPEARS UNCOMFORTABLE. PT WAS ASKED IF SHE NEEDED TO GET UP TO GO TO THE BATHROOM, SHE REPLIED BY SHAKING HER HEAD "YES." TWO PERSON ASSIST TO BEDSIDE COMMODE, PT ABLE TO ASSIST STAFF WITH STANDING BUT UNABLE TO KEEP ANY WEIGHT ON HER FEET. PT TEARY EYED AND APPEARED TO BE CRYING WHILE ON THE COMMODE, RN CONSOLED PT. REMADE BED. PT BACK TO BED VIA TWO PERSON ASSIST, READJUSTED IN BED. PT FLACC SCORE 5/10, AND PT NODDED "YES" WHEN ASKED IF SHE WOULD LIKE PAIN MEDICATION, GAVE LORTAB FOR PAIN. PT TOOK 2100 MEDICATION, CRUSHED AND MIXED IN PUDDING, TOLERATED WELL, NO CHOKING OR COUGHING OBSERVED. GAVE WARM BLANKET. CALL LIGHT IN REACH AND PT DEMONSTRATED USE OF CALL LIGHT. BED ALARM ACTIVATED FOR SAFETY.
--- NOTE | 2017-02-17 22:43 | NUR ---
PATIENT RESTING COMFORTABLY IN BED. BREATHING IS EVEN AND UNLABORED. O2 SAT IS 90% ON 3L O2 VIA OXY MASK, PULSE IS 97. SHIFT ASSESSMENT DONE, CALL LIGHT WITHIN REACH, BED ALARM ON.
--- NOTE | 2017-02-17 23:00 | NUR ---
UPDATED DR. BLOCK REGARDING PATIENT'S LOW URINE OUTPUT. NO NEW ORDERS AT THIS TIME.
--- NOTE | 2017-02-17 23:22 | NUR ---
PATIENT RESTING COMFORTABLY IN BED. BREATHING IS EVEN AND UNLABORED. O2 SAT IS 93% ON 3L O2 VIA OXY MASK. CALL LIGHT WITHIN REACH, BED ALARM ON.
--- NOTE | 2017-02-18 00:52 | NUR ---
PATIENT REPOSITIONED AFTER APPEARING UNCOMFORTABLE. SHE DENIES PAIN. NOW RESTING COMFORTABLY IN BED, BREATHING IS EVEN AND UNLABORED ON 3L O2 VIA OXYMASK. CALL LIGHT WITHIN REACH, BED ALARM ON.
--- NOTE | 2017-02-18 01:32 | NUR ---
PATIENT RESTING COMFORTABLY IN BED. BREATHING IS EVEN AND UNLABORED ON 3L O2 VAI OXYMASK, O2 SAT AT 96%. PULSE IS 107. CALL LIGHT WITHIN REACH, BED ALARM ON.
--- NOTE | 2017-02-18 01:56 | NUR ---
PATIENT FOUND SITTING UP IN BED WITHOUT HER OXYMASK. AFTER ASKING IF PATIENT WAS ANXIOUS, SHE NODDED HER HEAD YES. ONCE PATIENT'S O2 WAS PUT BACK ON, PATIENT APPEARED MORE RELAXED. AFTER ASKING PATIENT IF SHE FELT MORE COMFORTABLE, SHE NODDED HER HEAD YES. SHE DENIES NEED FOR BATHROOM AND PAIN. PATIENT RESPOSITIONED AND COVERED WITH BLANKET. CALL LIGHT WITHIN REACH, BED ALARM ON.
--- NOTE | 2017-02-18 03:58 | NUR ---
PATIENT'S ATTEND WAS SATURATED WITH URINE, WELL THE DRAW SHEET BENEATHE HER. PATIENT ALSO HAD AN INCONTINENT BM. AFTER LINENS WERE CHANGED, PATIENT REPOSITIONED FOR COMFORT. SHE DENIES PAIN AT THIS TIME. OXYGEN SAT IS 92% ON 3L O2 VIA OXYMASK. SHE DENIES OTHER NEEDS AT THIS TIME. CALL LIGHT WITHIN REACH, BED ALARM ON.
--- NOTE | 2017-02-18 04:07 | NUR ---
PATIENT ATE 100% OF CONTAINER OF [place] WITHOUT DIFFICULTY SWALLOWING.
--- NOTE | 2017-02-18 05:14 | NUR ---
PT USED CALL LIGHT. RN ENTERED ROOM, PT TRYING TO COMMUNICATE BUT UNABLE TO SPEAK. PT INCONTINENT OF BM, AND POINTED AT COMMODE. ASSISTED PT TO COMMODE, PT MOVING RIGHT ARM IN A SOMEWHAT CONTROLLED MANNER. PT ABLE TO SCOOT HER BOTTOM OVER TO SIDE OF BED. TWO PERSON ASSIST TO BSC, THEN BACK TO BED. PT HAD VERY SMALL BM IN COMMODE. PT DENIES FURTHER NEEDS AT THIS TIME. CALL LIGHT IN REACH.
--- NOTE | 2017-02-18 05:33 | NUR ---
PATIENT'S NIGHT HAS BEEN UNEVENTFUL. SHE HAS BEEN RESTING COMFORTABLY IN BED. VSS, PAIN HAS BEEN CONTROLLED WITH LORTAB ELIXIR. NO ACUTE CHANGES FROM BEGINNING OF SHIFT ASSESSMENT.
--- NOTE | 2017-02-18 07:25 | NUR ---
RECIEVED REPORT FROM DAY SHIFT NURSE. PT RESTING WITH EYES CLOSED IN BED. OXIMASK IN PLACE. CALL GALLAGHER IN REACH.
--- NOTE | 2017-02-18 07:43 | NUR ---
patient grabbing left leg and reached out for my hand. asked patient if she is ok she shook her head no. asked patient if she is in pain she nodded her head yes asked patient if she would like pain medication she nodded her head yes. RN notified. oral care done. repositoned patient. Patient refused any other care at this time. Patient refused BSC and breakfast.
--- NOTE | 2017-02-18 08:00 | NUR ---
PT ABLE TO TAKE PILLS CRUSHED IN APPLESAUCE W/O DICCICULTY. SHE WAS ABLE TO SWALLOW CARDIZEM WHOLE IN APPLESAUCE. PT C/O PAIN IN HER L KNEE. PT HOLDING KNEE UP TO HER CHEST, GRIMACING AND CRYING. PAIN MEDICINE ADMINISTERED PER JUL. PT REQUIRING ASSISTANCE WITH BREAKFAST. CALL GALLAHGER IN REACH. BED ALARM ON.
--- NOTE | 2017-02-18 08:08 | NUR ---
HELD SENNA AND MIRALX THIS MORNING. PT HAD MULTIPLE LOOSE BMS LAST NIGHT.
--- NOTE | 2017-02-18 08:29 | NUR ---
Assisted patient with breakfast. Patient eats about 40% of her tray. Offered sips of fruit ensure. This RN washes face and hands after feeding patient.
--- NOTE | 2017-02-18 08:57 | NUR ---
PT ABLE TO SHAKE HER HEAD TO YES AND NO QUESTIONS. WHEN ASKED, PT NODDED HER HEAD "YES" IF THE PAIN MEDICATION HELPED. HYDRATION OFFERED. PT ABLE TO FOLLOW COMMANDS. ENCOURAGED HER TO USE THE CALL LIGHT IF SHE NEEDS TO VOID OR HAVE A BM. PT NODDED "YES" WHEN ASKED IF SHE KNOWS WHEN SHE HAS VOIDED OR NEEDS TO VOID. PT DENIES OTHER NEEDS. CALL BLL IN REACH. BED ALARM ON.
--- NOTE | 2017-02-18 09:08 | NUR ---
PT UNABLE TO WORK WITH OCCUPATIONAL THERAPY DUE TO KNEE PAIN. THERAPIST STATES SHE PULLED HER UP IN BED AND THE PATIENT STARTED TO CRY. PT UNABLE TO RECIEVE MORE PAIN MEDS AT THIS TIME. INQUIRED MD. HE SAID JUST GIVE IT TIME, IF SHE DOES NOT WANT TO WORK WITH OT SHE DOES NOT HAVE TO.
--- NOTE | 2017-02-18 10:30 | NUR ---
BED BATH COMPLETE. PT CHANGED FOR STOOL INCONTINENCE. LINEN CHANGED. PT RESTING IN BED. SHE WAS SLEEPING WHEN I CAME IN. CALL GALLAGHER IN REACH.
--- NOTE | 2017-02-18 10:50 | NUR ---
RN ASSISTED WITH BED BATH. CLOTHS ON FOR GEOFFREY RAN. BLANKET IMMIGRATION ASSOCIATE BUTTON IN REACH. BED ALARM ON.
--- NOTE | 2017-02-18 11:30 | NUR ---
PT UP TO BSC WITH 2 PERSON ASSISTANCE. PT CONT AND INCONT OF URINE AND STOOL. PT HAD FORMED, HARD, BM. PT BACK TO BED. BRIEF CHANGED, BED LINEN CHANGE. PT DENIES NEED FOR PAIN MEDICATION. CALL GALLAGHER IN REACH. BED ALARM ON.
--- NOTE | 2017-02-18 12:00 | NUR ---
patient used call light to let us know that she's cold. adjusted her up in bed and covered patient with a blanket. bed alarm on. patient shook her head no when asked if she was in pain.
--- NOTE | 2017-02-18 12:44 | NUR ---
FAMILY IN TO SEE PT. PT RESTING IN BED. PT NODS HEAD WHEN ASKED IF SHE IS IN PAIN. PAIN MEDS ADMINISTERED PER JUL. THICKENED COFFEE DELIVERED. CALL GALLAGHER IN REACH. BED ALARM ON. OXYMASK IN PLACE.
--- NOTE | 2017-02-18 13:40 | NUR ---
PATIENT RESTING IN BED WITH EYES CLOSE BED ALARM ON.
--- NOTE | 2017-02-18 14:16 | NUR ---
PT WAS FOUND WITH OXYMASK OFF. NO SIGNS OF DISTRESS. PT DENIES NEEDS. CALL GALLAGHER IN REACH. BED ALARM ON.
== END 2017-02-18 14:30 | DRG 64 ==
LOC: ED 13:26 → CCU 18:49 → MS 02-16 18:27
PROVIDERS: ADMIT Internal Medicine
DX: I63.9 Cerebral infarction, unspecified (principal); J96.21 Acute and chronic respiratory failure with hypoxia; I50.31 Acute diastolic (congestive) heart failure; I96 Gangrene, not elsewhere classified; R47.01 Aphasia; I48.91 Unspecified atrial fibrillation; I11.0 Hypertensive heart disease with heart failure; I73.9 Peripheral vascular disease, unspecified; I71.4 Abdominal aortic aneurysm, without rupture; D50.0 Iron deficiency anemia secondary to blood loss (chronic); Z66 Do not resuscitate; J44.9 Chronic obstructive pulmonary disease, unspecified
CPT/HCPCS: 36415; 70450; 71010; 80048; 80053; 80069; 80202; 81001; 83605; 83735; 83880; 84484; 85025; 92610; 93005; 93010; 94762; 97110; 97112; 97163; 97165; 97535; G0480; J0696; J1335; J1650; J2270; J3370; J3475; J3480; J7040; J7060; J7120